=== PATIENT | male | born 1950 | race Caucasian/White ===

== ENCOUNTER → 2017-05-18 | Outpatient (CLI) | payer OTHER ==
[~2017-05-18] MED LIST: ALPR-411 PO; ATROPINE SULFATE 0.1 MG/ML 5ML SYR ONE; DOBUTamine 500MG / 250ML D5W ONE; METOPROLOL TARTRATE 1 MG/ML VIAL ONE; OXY/15 PO; OXYC40TA34 PO; PERFLUTREN LIPID MICROSPHERE (DEFINITY) IV ONE; POLYETHYLENE GLYCOL PO; TAMS0.4C59 PO
--- NOTE | 2017-05-18 12:56 | DOBUTAMINE ECHO ---
*NOTICE TO RECEIVING REPUBLICAN AGENCY This information is strictly Confidential and protected under [place] law. [place] law prohibits you from making any further disclosure of this information unless further disclosure is expressly permitted by the written consent of the person to whom it pertains or is authorized by law. A general authorization for the release of medical or other information is not sufficient for this purpose. Hospital accepts no responsibility if the information is made available to any other person, INCLUDING THE PATIENT. Interpretation Summary * Name: BJORN MATIAS Study Date: 05/18/2017 10:32 AM BP: 145/96 mmHg * Patient Location: [facility] HR: 76 * : 1950 (M/d/yyyy) Gender: Male Height: 66 in * Age: 66 yrs Ethnicity: CA Weight: 200 lb * Ordering Physician: Pam Quiroz * Referring Physician: Pam Quiroz PA-C * Performed By: David Gimenez RCS * * Reason For Study: Dyspnea on exertion * BSA: 2.0 m2 * Normal biventricular systolic function. * Class I left ventricular diastolic dysfunction. * Normal chamber dimensions. * No significant valvular abnormalities. * RESTING STUDY: Normal left ventricular cavity size, myocardial thickness, wall motion, and systolic function. * Stress wall motion was normal. * The stress ECG response was normal * This was a normal stress echocardiogram. Procedure Details * A contrast injection of Definity was performed to improve assessment of LV function. * Contrast was injected into an intravenous site in the right arm. * One vial of Definity ultrasound contrast was diluted in normal saline to a total volume of 10 ml. A total of '8' ml of solution was administered during imaging. * Lot # [id number] of Definity utilized for procedure. * Expiration date . * The attending nurse who injected the contrast agent was Aarti Black RN. Left Ventricle * The left ventricle is normal in size. * There is normal left ventricular wall thickness. * Ejection Fraction = 60-65%. * Left ventricular systolic function is low normal. * The left ventricular ejection fraction increases normally with stress. The left ventricular end-systolic cavity size reduces post-stress (normal response). The left ventricular wall motion with stress is normal. * A full diastolic examination was done with clinical findings of Class I diastolic dysfunction. * Resting wall motion: Normal. Stress wall motion: Appropriate increase in Left ventricular systolic function and decrease in cavity size. No stress induced segmental wall motion abnormalities. Right Ventricle * The right ventricle is normal in size and function. Mitral Valve * The mitral valve is normal. * There is no mitral valve stenosis. * There is no mitral regurgitation noted. Tricuspid Valve * The tricuspid valve is normal. * There is no tricuspid stenosis. * There is trace tricuspid regurgitation. * Right ventricular systolic pressure is normal. Aortic Valve * The aortic valve is not well visualized. * The aortic valve is trileaflet. * The aortic valve opens well. * Aortic stenosis is absent. * No aortic regurgitation is present. Pulmonic Valve * The pulmonic valve is not well visualized. * The pulmonary valve is inadequately visualized, but the Doppler data is adequate for interpretation. * Pulmonic stenosis is absent. * There is no pulmonic valvular regurgitation. Great Vessels * The aortic root is normal size. Pericardium * There is no pericardial effusion. Stress Parameters * Normal baseline electrocardiogram. * Stress ECG: No ST changes. No arrhythmias. * The stress ECG response was normal * The stress portion of this study was personally supervised by the undersigned interpreting physician. * Rest heart rate was '68' BPM. * Rest blood pressure was '145/83' * Maximum heart rate achieved was 141 bpm. * Maximum heart rate was 90 % of maximum age-predicted heart rate. * Maximum blood pressure was '164/73' * Maximum Dobutamine infusion rate was '50' mcg/kg/min. * A total of 0 mg of intravenous Atropine was used to supplement Dobutamine for heart rate response. * Dobutamine infusion was terminated due to achieving target heart rate * A total of 5 mg of IV Metoprolol was administered to reverse Dobutamine-induced tachycardia. * The patient did not exhibit any symptoms during drug infusion. * No complaint of chest pain or dyspnea during or following stress. MMode 2D Measurements and Calculations IVSd 0.83 cm LVIDd 4.3 cm LVIDs 2.3 cm LVPWd 0.87 cm IVS/LVPW 0.96 FS 47.1 % EDV(Teich) 83.8 ml ESV(Teich) 17.8 ml EF(Teich) 78.7 % EDV(cubed) 80.4 ml ESV(cubed) 11.9 ml EF(cubed) 85.2 % LV mass(C)d 114.7 grams LV mass(C)dI 57.3 grams/m\S\2 SV(Teich) 65.9 ml SI(Teich) 33.0 ml/m\S\2 SV(cubed) 68.4 ml SI(cubed) 34.2 ml/m\S\2 Ao root diam 3.3 cm Ao root area 8.3 cm\S\2 LVOT diam 2.0 cm LVOT area 3.1 cm\S\2 EDV(MOD-sp4) 89.7 ml ESV(MOD-sp4) 27.1 ml EF(MOD-sp4) 69.8 % EDV(MOD-sp2) 87.1 ml ESV(MOD-sp2) 36.8 ml EF(MOD-sp2) 57.8 % SV(MOD-sp4) 62.6 ml SI(MOD-sp4) 31.3 ml/m\S\2 SV(MOD-sp2) 50.4 ml SI(MOD-sp2) 25.2 ml/m\S\2 Doppler Measurements and Calculations MV E max sarah 75.2 cm/sec MV A max sarah 76.5 cm/sec MV E/A 0.98 LV IVRT 0.12 sec MV dec slope 323.4 cm/sec\S\2 MV dec time 0.23 sec Ao V2 max 132.5 cm/sec Ao max PG 7.0 mmHg Ao max PG (full) 3.0 mmHg Ao V2 mean 92.8 cm/sec Ao mean PG 3.8 mmHg Ao mean PG (full) 1.5 mmHg Ao V2 VTI 25.3 cm REJI(I,A) 2.5 cm\S\2 REJI(I,D) 2.5 cm\S\2 REJI(V,A) 2.3 cm\S\2 REJI(V,D) 2.3 cm\S\2 LV V1 max PG 4.0 mmHg LV V1 mean PG 2.3 mmHg LV V1 max 100.2 cm/sec LV V1 mean 72.5 cm/sec LV V1 VTI 20.8 cm SV(Ao) 210.0 ml SI(Ao) 105.0 ml/m\S\2 SV(LVOT) 64.2 ml SI(LVOT) 32.1 ml/m\S\2 TR max sarah 227.0 cm/sec
== END | disposition home or self-care (01) ==
LOC: C.CPL 10:17
PROVIDERS: ATTEND Physician Assistant
DX: R60.0 Localized edema (principal); R06.09 Other forms of dyspnea

== ENCOUNTER → 2017-08-16 | Outpatient (CLI) | payer OTHER ==
[~2017-08-16] MED LIST changes: +ALFU1TAB2 PO; +AMPH20TA2 PO; -ATROPINE SULFATE 0.1 MG/ML 5ML SYR ONE; -DOBUTamine 500MG / 250ML D5W ONE; +FINA5TAB PO; +LISI-725 PO; +METH10TA PO; -METOPROLOL TARTRATE 1 MG/ML VIAL ONE; +OXYC1TAB PO; -PERFLUTREN LIPID MICROSPHERE (DEFINITY) IV ONE; +POLY335019 PO; +TAMS0.4C38 PO
== END | disposition home or self-care (01) ==
LOC: C.LABSPEC 16:55
PROVIDERS: ATTEND Urology
DX: R31.29 Other microscopic hematuria (principal)

== ENCOUNTER 2017-09-04 12:26 | Emergency (ER) | payer OTHER ==
[~2017-09-04] VITALS: Ht 167.6 cm; Wt 92.0 kg
[~2017-09-04 12:26] MED LIST changes: -OXY/15 PO; -OXYC40TA34 PO; -POLYETHYLENE GLYCOL PO; -TAMS0.4C59 PO
[2017-09-04 12:33] VITALS: TEMP 37.2; Ht 167.6 cm; Wt 92.0 kg
[2017-09-04] MEDS ORDERED: AMPH10CA3 PO (12:56)
[2017-09-04] MEDS ORDERED: LISI-787 PO (12:56)
[2017-09-04] MEDS ORDERED: SODIUM CHLORIDE 0.9% 1000ML 1,000 ML IV ONE (13:02)
[2017-09-04] MEDS ORDERED: CEFEPIME IV 2,000 MG in DEXTROSE 5% 100ML 100 ML IV STA (13:02)
[2017-09-04] MEDS ORDERED: KETOROLAC TROMETHAMINE 30 MG/ML VIAL IV STA (13:05)
--- NOTE | 2017-09-04 13:14 | EMERGENCY ROOM VISIT NOTE ---
History Report prepared by [place]: Adriana Yen Under the Supervision of: Dr. Benjamín Soto M.D. 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 He currently is being treated for a UTI and has been taking Macrobid since August 19, 2017. He is expected to have a urologic procedure on his prostate tomorrow, but he feels like his infection is worsening. He notes increased chills, weakness, nausea, dizziness, loss of appetite, joint pain in hips, pruritus, and fevers. He currently rates his pain a 1/10 in severity. He notes his fevers have been to 101.7 F. He notes itching in his legs. He notes a rash on all four extremities. He notes that he scratched the rash and it started bleeding. He notes the rashes have been present longer than he has been taking the antibiotics. He uses a self-catheter to urinate. He states that he has been "keeping up with his fluids." He denies any coughs, vomiting, abdominal pain, tick bites, or dysuria. Source of History: patient Onset: 5 days RESERVATION AGENT Symptom Intensity: 1/10 Quality: other (chills) Associated Symptoms: + fevers (101.7), + chills, + nausea, + weakness, + rash (abdomen and all four extremities. ), No cough, No vomiting, No abdominal pain Note: He notes increased dizziness, loss of appetite, joint pain in hips, and pruritus. He denies any tick bites or dysuria. Review of Systems See HPI for pertinent positives & negatives. A total of 10 systems reviewed and were otherwise negative. Past Medical & Surgical Medical Problems: (1) H/O blood clots (2) HTN (hypertension) Surgical Problems: (1) Previous back surgery Family History Cancer Diabetes mellitus FH: HTN (hypertension) FH: heart disease FH: lung disease Hypertension Seizures Social History Smoking Status: Never Smoker Smokeless Tobacco Use: No Alcohol Use: none Drug Use: none Housing Status: lives with family Current/Historical Medications Scheduled Alfuzosin Hcl (Alfuzosin Hcl Er), 10 MG PO DAILY Alprazolam (Xanax), 0.5 MG PO HS Amphetamine-Dextroamphetamine 10MG (Adderall Xr 10MG), 10 MG PO DAILY Finasteride (Proscar), 5 MG PO QAM Lisinopril/Hctz (Zestoretic 20MG/12.5MG), 1 TAB PO DAILY Methadone Hcl (Dolophine), 10 MG PO DAILY Oxycodone Ir (Roxicodone Ir), 30 MG PO TID Tamsulosin Hcl (Flomax), 0.4 MG PO QAM Scheduled PRN Polyethylene Glycol 3350 (Miralax), 17 GM PO DAILY PRN for CONSTIPATION Allergies Coded Allergies: No Known Allergies (Verified , 09/04/17) Physical Exam Vital Signs Date Time Temp Pulse Resp B/P (MAP) Pulse Ox O2 Delivery O2 Flow Rate FiO2 09/04/17 16:42 79 20 123/69 94 09/04/17 15:16 93 22 113/70 94 09/04/17 13:28 95 Room Air 09/04/17 12:56 121 09/04/17 12:33 37.2 128 20 177/75 94 Room Air Physical Exam GENERAL: Patient is in no acute distress. HEENT: No acute trauma, normocephalic atraumatic, mucous membranes moist, no nasal congestion, no scleral icterus. NECK: No stridor, no adenopathy, no meningismus, trachea is midline. LUNGS: Clear to auscultation bilaterally, no wheeze, no rhonchi, breath sounds equal. HEART: Tachycardic with regular rhythm. No murmurs. ABDOMEN: Soft, nontender, bowel sounds positive, no hernias, no peritonitis. EXTREMITIES: No cyanosis or edema, full range of motion of all the joints without pain or difficulty, no signs for acute trauma. NEUROLOGIC: Oriented x 3, no acute motor or sensory deficits, no focal weakness. SKIN: Slightly raised erythematous papular rash on UE and LE, especially the feet. This is non-blanching. No cellulitis. Medical Decision & Procedures ER Provider Diagnostic Interpretation: Radiology results as stated below per my review and radiologist interpretation: CHEST ONE VIEW PORTABLE CLINICAL HISTORY: 67 years-old Male presenting with Sepsis. TECHNIQUE: Portable upright AP view of the chest was obtained. COMPARISON: 08/16/2017. FINDINGS: Atherosclerosis of aortic arch. Cardiac silhouette normal in size. Lungs and pleural spaces clear. Anterior cervical fusion hardware noted. Upper abdomen normal. IMPRESSION: 1. No acute cardiopulmonary disease. Electronically signed by: Teo Sun M.D. 09/04/2017 1:33 PM Dictated Date/Time: 09/04/2017 1:30 PM Laboratory Results 09/04/17 13:15 Red Blood Count 4.30, Mean Corpuscular Volume 86.3, Mean Corpuscular Hemoglobin 29.8, Mean Corpuscular Hemoglobin Concent 34.5, Mean Platelet Volume 9.0, Neutrophils (%) (Auto) 82.7, Lymphocytes (%) (Auto) 6.5, Monocytes (%) (Auto) 7.8, Eosinophils (%) (Auto) 2.5, Basophils (%) (Auto) 0.2, Neutrophils # (Auto) 10.26, Lymphocytes # (Auto) 0.81, Monocytes # (Auto) 0.97, Eosinophils # (Auto) 0.31, Basophils # (Auto) 0.02 09/04/17 13:15 Test 09/04/17 13:15 09/04/17 13:25 09/04/17 14:15 White Blood Count 12.41 K/uL (4.8-10.8) Red Blood Count 4.30 M/uL (4.7-6.1) Hemoglobin 12.8 g/dL (14.0-18.0) Hematocrit 37.1 % (42-52) Mean Corpuscular Volume 86.3 fL (80-100) Mean Corpuscular Hemoglobin 29.8 pg (25-34) Mean Corpuscular Hemoglobin Concent 34.5 g/dl (32-36) Platelet Count 178 K/uL (130-400) Mean Platelet Volume 9.0 fL (7.4-10.4) Neutrophils (%) (Auto) 82.7 % Lymphocytes (%) (Auto) 6.5 % Monocytes (%) (Auto) 7.8 % Eosinophils (%) (Auto) 2.5 % Basophils (%) (Auto) 0.2 % Neutrophils # (Auto) 10.26 K/uL (1.4-6.5) Lymphocytes # (Auto) 0.81 K/uL (1.2-3.4) Monocytes # (Auto) 0.97 K/uL (0.11-0.59) Eosinophils # (Auto) 0.31 K/uL (0-0.5) Basophils # (Auto) 0.02 K/uL (0-0.2) RDW Standard Deviation 43.2 fL (36.4-46.3) RDW Coefficient of Variation 13.7 % (11.5-14.5) Immature Granulocyte % (Auto) 0.3 % Immature Granulocyte # (Auto) 0.04 K/uL (0.00-0.02) Prothrombin Time 11.2 SECONDS (9.0-12.0) Prothromb Time International Ratio 1.1 (0.9-1.1) Activated Partial Thromboplast Time 29.6 SECONDS (21.0-31.0) Partial Thromboplastin Ratio 1.1 Anion Gap 7.0 mmol/L (3-11) Est Creatinine Clear Calc Drug Dose 54.7 ml/min Estimated GFR () 59.7 Estimated GFR (Non- 51.5 BUN/Creatinine Ratio 12.2 (10-20) Calcium Level 8.5 mg/dl (8.5-10.1) Total Bilirubin 0.7 mg/dl (0.2-1) Aspartate Amino Transf (AST/SGOT) 16 U/L (15-37) Alanine Aminotransferase (ALT/SGPT) 31 U/L (12-78) Alkaline Phosphatase 72 U/L (45-117) Troponin I < 0.015 ng/ml (0-0.045) Total Protein 7.6 gm/dl (6.4-8.2) Albumin 3.5 gm/dl (3.4-5.0) Globulin 4.1 gm/dl (2.5-4.0) Albumin/Globulin Ratio 0.9 (0.9-2) Thyroid Stimulating Hormone (TSH) 0.308 uIu/ml (0.300-4.500) Lyme Disease IgG Antibody NEG (NEG) Lyme Disease IgM Antibody NEG (NEG) Bedside Lactic Acid Venous 1.31 mmol/L (0.90-1.70) Urine Color DK YELLOW Urine Appearance CLEAR (CLEAR) Urine pH 5.0 (4.5-7.5) Urine Specific [place] 1.020 (1.000-1.030) Urine Protein NEG (NEG) Urine Glucose (UA) NEG (NEG) Urine Ketones 1+ (NEG) Urine Occult Blood NEG (NEG) Urine Nitrite NEG (NEG) Urine Bilirubin NEG (NEG) Urine Urobilinogen NEG (NEG) Urine Leukocyte Esterase NEG (NEG) Laboratory results reviewed by me. Medications Administered Medications (Trade) Dose Ordered Sig/Angelo Route Start Time Stop Time Status Last Admin Dose Admin Sodium Chloride 1,000 ml @ 999 mls/hr Q1H1M ONCE IV 09/04/17 13:02 09/04/17 14:02 DC 09/04/17 13:46 999 MLS/HR Cefepime HCl 2000 mg/Dextrose 112.5 ml @ 200 mls/hr ONE STAT IV 09/04/17 13:02 09/04/17 13:35 DC 09/04/17 13:45 200 MLS/HR Ketorolac Tromethamine (Toradol Inj) 30 mg NOW STAT IV 09/04/17 13:05 09/04/17 13:08 DC 09/04/17 13:45 30 MG Sodium Chloride 500 ml @ 999 mls/hr Q31M STAT IV 09/04/17 15:10 09/04/17 15:40 DC 09/04/17 15:17 999 MLS/HR Acetaminophen (Tylenol Tab) 1,000 mg NOW STAT PO 09/04/17 15:10 09/04/17 15:11 DC 09/04/17 15:20 1,000 MG ECG Indication: other (chills) Rate (beats per minute): 118 Rhythm: sinus tachycardia Findings: no acute ischemic change, no ectopy ED Course 1301: The patient was evaluated in room C11. A complete history and physical exam was performed. 1302: Ordered Cefepime HCl 2,000 mg/Dextrose IV and NSS 1,000 ml @ 999 mls/hr IV 1305: Ordered Toradol 30 mg IV 1310: Ordered Tylenol 1,000 mg PO and NSS 500 ml @ 999 mls/hr IV 1510: I reassessed the patient at this time. He is feeling better and resting comfortably. 1629: I reassessed the patient at this time. He is feeling better and resting comfortably. I discussed the results and treatment plan with the patient. I answered all pertaining questions that he had. He will follow up with his urologist tomorrow. He expressed understanding and verbalized agreement. The patient will be discharged home. Medical Decision The patient is a 67 year old male who presents to the ED with complaints of persistent chills. Differential diagnoses considered include sepsis, bacteremia , cellulitis, UTI, PNA, Lyme disease, dehydration, and electrolyte imbalance. There is a mild leukocytosis at 12,000, this could be consistent with infection or the stress of his presentation-looking back at previous testing, he has had a slight white count elevation in the past. No concerning anemia. No significant electrolyte abnormality or kidney failure-renal panel testing suggests some dehydration. Urinalysis shows ketones consistent with dehydration , no infection. There was no hepatitis. The patient appears to be in a euthyroid state. Lactic acid level is not elevated making sepsis less likely. Chest film does not show pneumonia or CHF. On exam, there was no obvious cellulitis. Lyme disease testing is pending. Blood cultures are pending. The patient received IV saline, his heart rate decreased, he felt improved. He received IV cefepime as Antibiotic coverage. He received IV Toradol, oral Tylenol. With the above treatment, the patient's heart rate was noted to be in the 70s, he felt improved. I discussed staying in the hospital for further hydration and care, he feels well enough to be discharged home and to follow-up with his doctors office. I discussed the possibility of some of his symptoms being from the Macrobid that he has been taking now for over 2 weeks. He should consider stopping this medication. The patient will return here for worsening symptoms, [id number] pain meds were suggested. Hydration and rest were encouraged. The patient will contact his urologist tomorrow about his visit today and about his use of antibiotics. Medication Reconcilliation Current Medication List: was personally reviewed by me Blood Pressure Screening Patient's blood pressure: Elevated blood pressure Blood pressure disposition: Referred to PCP Impression Primary Impression: Dehydration Additional Impressions: Body aches Tachycardia Scribe Attestation The scribe's documentation has been prepared under my direction and personally reviewed by me in its entirety. I confirm that the note above accurately reflects all work, treatment, procedures, and medical decision making performed by me. Departure Information Dispostion Home / Self-Care Referrals Pam Quiroz PA-C (PCP) Forms HOME CARE DOCUMENTATION FORM, IMPORTANT VISIT INFORMATION Patient Instructions My [facility] Additional Instructions stay well hydrated rest consider stopping the nitrofurantoin antibiotic as there is not infection in the urine right now and some of your symptoms may be from this medication return if worsening as we discussed call your doctor in the early am about the procedure scheduled for tomorrow Problem Qualifiers
[2017-09-04 13:28] VITALS: O2SAT 95
--- NOTE | 2017-09-04 13:35 | DIAGNOSTIC IMAGING REPORT ---
CHEST ONE VIEW PORTABLE CLINICAL HISTORY: 67 years-old Male presenting with Sepsis. TECHNIQUE: Portable upright AP view of the chest was obtained. COMPARISON: 08/16/2017. FINDINGS: Atherosclerosis of aortic arch. Cardiac silhouette normal in size. Lungs and pleural spaces clear. Anterior cervical fusion hardware noted. Upper abdomen normal. IMPRESSION: 1. No acute cardiopulmonary disease. Electronically signed by: Teo Sun M.D. 09/04/2017 1:33 PM Dictated Date/Time: 09/04/2017 1:30 PM
[2017-09-04 13:42] LABS: BASO % 0.2 %; BASO ABS # 0.02 K/uL (0-0.2); COMPLETE YES; EOS % 2.5 %; HEMATOCRIT 37.1 % (42-52); IG% 0.3 %; LYMPH % 6.5 %; LYMPH ABS # 0.81 K/uL (1.2-3.4); MEAN CELL VOLUME 86.3 fL (80-100); MEAN CORPUSCULAR HEMOGLOBIN 29.8 pg (25-34); MEAN CORPUSCULAR HGB CONC 34.5 g/dl (32-36); MONO % 7.8 %; NEUT % 82.7 %; PLATELET COUNT 178 K/uL (130-400); WHITE BLOOD COUNT 12.41 K/uL (4.8-10.8)
[2017-09-04 13:53] LABS: INR 1.1 (0.9-1.1); PARTIAL THROMBOPLASTIN RATIO 1.1; PROTHROMBIN TIME (PATIENT) 11.2 SECONDS (9.0-12.0)
[2017-09-04 14:00] LABS: ALT/SGPT 31 U/L (12-78); AST/SGOT 16 U/L (15-37); BLOOD UREA NITROGEN 17 mg/dl (7-18); BUN/CREATININE RATIO 12.2 (10-20); CALCIUM 8.5 mg/dl (8.5-10.1); CARBON DIOXIDE 27 mmol/L (21-32); CHLORIDE 95 mmol/L (98-107); CREATININE 1.41 mg/dl (0.60-1.40); GLUCOSE 124 mg/dl (70-99); SODIUM 129 mmol/L (136-145)
[2017-09-04 14:11] LABS: ALB/GLOB RATIO 0.9 (0.9-2); ALKALINE PHOSPHATASE 72 U/L (45-117); THYROID STIMULATING HORMONE 0.308 uIu/ml (0.300-4.500)
[2017-09-04 14:35] LABS: URINE APPEARANCE CLEAR (CLEAR); URINE BILIRUBIN NEG (NEG); URINE COLOR DK YELLOW; URINE NITRITE NEG (NEG); UROBILINOGEN NEG (NEG)
[2017-09-04 14:39] LABS: MANUAL MICROSCOPIC REQUIRED? NO; REVIEW REQ? NO
[2017-09-04 14:43] LABS: LYME DISEASE AB IGG NEG (NEG); LYME DISEASE AB IGM NEG (NEG)
[2017-09-04] MEDS ORDERED: ACETAMINOPHEN 500 MG TAB PO STA (15:10)
[2017-09-04] MEDS ORDERED: SODIUM CHLORIDE 0.9% 500ML 500 ML IV STA (15:10)
[2017-09-04 16:42] VITALS: BP 123/69; PULSE 79; O2SAT 94
== END 2017-09-04 16:43 | disposition home or self-care (01) ==
LOC: C.EDB 12:27 → C.EDC 16:43
DX: E86.0 Dehydration (principal); M79.1 Myalgia; R00.0 Tachycardia, unspecified; D72.829 Elevated white blood cell count, unspecified; I10 Essential (primary) hypertension; Z98.890 Other specified postprocedural states; Z79.899 Other long term (current) drug therapy; Z83.2 Family history of diseases of the blood and blood-forming organs and certain disorders involving the immune mechanism; Z80.9 Family history of malignant neoplasm, unspecified; Z83.3 Family history of diabetes mellitus; Z82.49 Family history of ischemic heart disease and other diseases of the circulatory system; Z82.0 Family history of epilepsy and other diseases of the nervous system

== ENCOUNTER → 2017-09-05 | Day surgery (SDC) | payer OTHER ==
[2017-08-16 12:11] VITALS: Ht 167.6 cm; Wt 90.9 kg
--- NOTE | 2017-08-16 12:46 | PAT Medication Instructions ---
Service Date Aug 16, 2017. Current Home Medication List Alfuzosin Hcl (Alfuzosin Hcl Er), 1 TAB PO DAILY PRN for PRN Alprazolam (Xanax), 0.5 MG PO HS Amphetamine-Dextroamphetamine 20MG (Adderall 20MG), 20 MG PO QAM Finasteride (Proscar), 5 MG PO QAM Lisinopril (Zestril), 20 MG PO QAM Methadone Hcl (Dolophine), 1.5 TAB PO TID Oxycodone Ir (Roxicodone Ir), 1 TAB PO Q6H Polyethylene Glycol 3350 (Miralax), 17 GM PO DAILY PRN for CONSTIPATION Tamsulosin Hcl (Flomax), 0.4 MG PO QAM Medication Instructions For Your Scheduled Surgery - Hold the following medications the morning of surgery: Amphetamine-Dextroamphetamine 20MG (Adderall 20MG), 20 MG PO QAM Lisinopril (Zestril), 20 MG PO QAM Polyethylene Glycol 3350 (Miralax), 17 GM PO DAILY PRN for CONSTIPATION - Take the following medications the morning of surgery with a sip of water OTHERWISE NOTHING TO EAT OR DRINK AFTER MIDNIGHT: Oxycodone Ir (Roxicodone Ir), 1 TAB PO Q6H Tamsulosin Hcl (Flomax), 0.4 MG PO QAM Alfuzosin Hcl (Alfuzosin Hcl Er), 1 TAB PO DAILY PRN for PRN Methadone Hcl (Dolophine), 1.5 TAB PO TID Finasteride (Proscar), 5 MG PO QAM - Take the following medications as scheduled the night before surgery: Alprazolam (Xanax), 0.5 MG PO HS Oxycodone Ir (Roxicodone Ir), 1 TAB PO Q6H Methadone Hcl (Dolophine), 1.5 TAB PO TID If you have any questions please call us at [phone] or [phone] or [phone]
[2017-08-16 13:11] LABS: BASO % 0.4 %; BASO ABS # 0.04 K/uL (0-0.2); COMPLETE YES; EOS % 3.5 %; HEMATOCRIT 39.6 % (42-52); IG% 0.5 %; LYMPH % 20.2 %; LYMPH ABS # 2.24 K/uL (1.2-3.4); MEAN CELL VOLUME 88.2 fL (80-100); MEAN CORPUSCULAR HEMOGLOBIN 29.6 pg (25-34); MEAN CORPUSCULAR HGB CONC 33.6 g/dl (32-36); MEAN PLATELET VOLUME 8.7 fL (7.4-10.4); MONO % 7.2 %; NEUT % 68.2 %; PLATELET COUNT 228 K/uL (130-400); RED BLOOD COUNT 4.49 M/uL (4.7-6.1); WHITE BLOOD COUNT 11.09 K/uL (4.8-10.8)
--- NOTE | 2017-08-16 13:36 | DIAGNOSTIC IMAGING REPORT ---
CHEST 2 VIEWS ROUTINE HISTORY: Preop. COMPARISON: None. FINDINGS: The lungs are clear. Cardiac silhouette is normal in size. No pleural effusions. No pneumothorax. Cervical spinal fusion hardware. IMPRESSION: No significant change compared to the prior study. No acute process. Electronically signed by: Brian Grajeda M.D. 08/16/2017 1:35 PM Dictated Date/Time: 08/16/2017 1:34 PM
[2017-08-16 14:53] LABS: BUN/CREATININE RATIO 11.8 (10-20); CALCIUM 9.3 mg/dl (8.5-10.1); CREATININE 1.38 mg/dl (0.60-1.40); POTASSIUM 4.2 mmol/L (3.5-5.1)
[~2017-09-05] VITALS: Ht 167.6 cm; Wt 90.9 kg
[~2017-09-05] MED LIST changes: +AMPH10CA3 PO; -AMPH20TA2 PO; +ATROPINE SULFATE 0.1 MG/ML 5ML SYR IV PRN; +CIPROFLOXACIN / D5W 400 MG IV SCH; +EpHEDrine SULFATE INJ 50 MG/ML AMP IV PRN; +FENTANYL CITRATE INJ 50 MCG/1 ML 2 ML VIAL IV PRN; +LACTATED RINGER'S 1000ML 1,000 ML IV SCH; -LISI-725 PO; +LISI-787 PO; +ONDANSETRON INJ 2 MG/ML 2 ML VIAL IV PRN
[2017-09-05 09:55] VITALS: BP 163/82; PULSE 90; TEMP 37.4; O2SAT 95
--- NOTE | 2017-09-05 10:08 | Anesthesiology Progress Note ---
Anesthesia Progress Note Date of Service Sep 05, 2017. Progress Notes Mr. Silva's surgery is canceled for today as he states he was febrile, chills and recently diagnosed with UTI. Surgeon is agreement that patient needs to f/u with his PCM and call Dr. Calderon's office to reschedule in several weeks, assuming patient's condition has improved by then. Patient agrees with plan and all questions were answered.
== END | disposition home or self-care (01) ==
LOC: C.ACU 09:41
PROVIDERS: ATTEND Urology
DX: N40.1 Benign prostatic hyperplasia with lower urinary tract symptoms (principal); Z53.09 Procedure and treatment not carried out because of other contraindication; R31.29 Other microscopic hematuria; I10 Essential (primary) hypertension; Z80.1 Family history of malignant neoplasm of trachea, bronchus and lung; Z80.9 Family history of malignant neoplasm, unspecified; Z82.3 Family history of stroke; Z98.890 Other specified postprocedural states

== ENCOUNTER → 2017-12-14 | Outpatient (CLI) | payer OTHER ==
[~2017-12-14] MED LIST changes: -ATROPINE SULFATE 0.1 MG/ML 5ML SYR IV PRN; -CIPROFLOXACIN / D5W 400 MG IV SCH; -EpHEDrine SULFATE INJ 50 MG/ML AMP IV PRN; -FENTANYL CITRATE INJ 50 MCG/1 ML 2 ML VIAL IV PRN; -LACTATED RINGER'S 1000ML 1,000 ML IV SCH; -ONDANSETRON INJ 2 MG/ML 2 ML VIAL IV PRN
--- NOTE | 2017-12-24 08:51 | CODING QUERY MEDICAL NECESSITY ---
CQTREATMENT RENDERED WITHOUT A DIAGNOSIS To promote full compliance with coding requirements relating to patient care, physician participation is requested in all cases of paving foreman uncertainty. Please assist us with providing a diagnosis/symptom for the test(s) below: A diagnosis/symptom was not documented on your Order. A valid diagnosis/symptom is required to bill all insurances. Please remember that we are unable to code a diagnosis of rule out, probable, possible, questionable, or suspected. Tests that require a diagnosis: DOS 12/14/17 EKG TEST Provider Signature: Date: Thank you Li Chaney Health Information Management Once completed, please kindly fax back to [phone] For questions please call [phone]
== END | disposition home or self-care (01) ==
LOC: C.CPL 11:49
PROVIDERS: ATTEND Physician Assistant
DX: Z00.00 Encounter for general adult medical examination without abnormal findings (principal); Z79.899 Other long term (current) drug therapy

== ENCOUNTER → 2018-04-27 | Outpatient (CLI) | payer OTHER | END | disposition home or self-care (01) | LOC: C.CPL 10:57 | PROVIDERS: ATTEND Anesthesiology | DX: Z79.891 Long term (current) use of opiate analgesic (principal) ==